=== PATIENT | male | born 1985 | race Caucasian/White ===

== ENCOUNTER 2016-07-22 03:19 | Emergency (ER) | payer MEDICARE, MEDICAID ==
[~2016-07-22] VITALS: Ht 182.9 cm; Wt 100.0 kg
[2016-07-22 03:58] VITALS: BP 126/69
== END 2016-07-22 05:44 | disposition left against medical advice (07) ==
LOC: ER 03:19
DX: M54.5 Low back pain (principal); R19.7 Diarrhea, unspecified; R11.2 Nausea with vomiting, unspecified; F17.200 Nicotine dependence, unspecified, uncomplicated